=== PATIENT | female | born 1965 | race African-American/Black ===

== ENCOUNTER 2018-11-08 11:55 | Emergency (ER) | payer MEDICAID, OTHER ==
[~2018-11-08] VITALS: Ht 167.6 cm; Wt 77.0 kg
[2018-11-08] MEDS ORDERED: SODIUM CHLORIDE 0.9% 1,000 ML IV ONE (15:09)
[2018-11-08] MEDS ORDERED: TRAMADOL 50MG TABLET PO ONE (16:15)
[2018-11-08 16:28] LABS: BASOPHILS % 0.8 % (0.0-2.0); CHLORIDE 101 mEq/L (98-107); EOSINOPHILS % 0.5 % (0.0-5.0); HEMATOCRIT. 39.8 % (36.0-48.0); LYMPHOCYTES % 27.8 % (20.0-50.0); MEAN CORPUSCULAR HEMOGLOBIN 27.9 pg (28.0-32.0); MEAN CORPUSCULAR VOLUME 85.6 fL (81.0-99.0); MEAN PLATELET VOLUME 8.4 fl (7.4-10.4); NEUTROPHILS % 61.9 % (40.0-76.0); PLATELET 290 x1000/uL (130-400); RED BLOOD CELL COUNT 4.64 mill/uL (4.2-5.4); RED CELL DISTRIBUTION WIDTH 13.2 % (11.6-14.6)
[2018-11-08 16:32] LABS: ETHANOL BLOOD < 10 mg/dL
[2018-11-08 16:35] LABS: INR 1.1; PARTIAL THROMBOPLASTIN TIME 24.2 sec (23.4-31.0); PROTHROMBIN TIME 10.7 sec (9.1-11.1)
[2018-11-08 19:37] LABS: CLARITY URINE CLOUDY (CLEAR); COLOR URINE YELLOW (YELLOW); KETONES URINE TRACE (NEGATIVE); LEUKOCYTE ESTERASE URINE TRACE (NEGATIVE); NITRITE URINE NEGATIVE (NEGATIVE); OCCULT BLOOD URINE NEGATIVE (NEGATIVE); PH URINE 5.5 (4.5-8.0); PROTEIN URINE 2+ (NEGATIVE); SPECIFIC GRAVITY URINE 1.015 (1.005-1.030); UROBILINOGEN URINE 0.2 E.U./dL (0.2-1.0)
[2018-11-08 20:45] LABS: *BARBITURATES SCREEN URINE NEGATIVE (NEGATIVE)
[2018-11-08 20:46] LABS: *AMPHETAMINES SCREEN URINE NEGATIVE (NEGATIVE); *BENZODIAZEPINES SCREEN URINE NEGATIVE (NEGATIVE); *COCAINE SCREEN URINE NEGATIVE (NEGATIVE); CANNABINOID URINE SCREEN NEGATIVE (NEGATIVE); METHADONE URINE SCREEN NEGATIVE (NEGATIVE); OPIATES URINE SCREEN PRESUMTIVE POSITIVE (NEGATIVE); PHENCYCLIDINE URINE SCREEN NEGATIVE (NEGATIVE)
[2018-11-08 21:17] VITALS: BP 116/67
== END 2018-11-08 21:22 | disposition short-term general hospital (02) ==
LOC: ER 12:42 → EDBEDREQTM 17:24 → EDBEDREQ 17:24 → EDBEDREQTM 18:03 → ENRESERV 18:42 → ER 21:22 → CANBEDREQ 11-09 08:00
DX: R55 Syncope and collapse (principal); M54.5 Low back pain; Z90.49 Acquired absence of other specified parts of digestive tract
CPT/HCPCS: 36415; 70450; 71045; 72070; 72100; 72125; 80053; 80305; 81003; 83690; 83735; 83880; 84484; 85025; 85610; 85730; 87186; 93005; 96360; 96361; 99285; J7030

== ENCOUNTER 2019-05-11 08:11 | Emergency (ER) | payer OTHER ==
[~2019-05-11] VITALS: Ht 160 cm; Wt 85.0 kg
[2019-05-11 08:22] VITALS: BP 123/76
[2019-05-11] MEDS ORDERED: KETOROLAC 60MG/2ML VIAL IM ONE (09:15)
== END 2019-05-11 09:48 | disposition home or self-care (01) ==
LOC: ER 08:11
DX: T16.2XXA Foreign body in left ear, initial encounter (principal); S76.012A Strain of muscle, fascia and tendon of left hip, initial encounter; S46.919A Strain of unspecified muscle, fascia and tendon at shoulder and upper arm level, unspecified arm, initial encounter; Z90.49 Acquired absence of other specified parts of digestive tract; Z96.643 Presence of artificial hip joint, bilateral; X58.XXXA Exposure to other specified factors, initial encounter; Y93.89 Activity, other specified; Y92.018 Other place in single-family (private) house as the place of occurrence of the external cause
CPT/HCPCS: 69200; 96372; 99284; J1885